=== PATIENT | male | born 1955 | race Caucasian/White ===

== ENCOUNTER 2019-01-16 19:49 | Emergency (ER) | payer OTHER ==
[~2019-01-16] VITALS: Ht 175.3 cm; Wt 59.0 kg
[~2019-01-16 19:49] MED LIST: ATEN100T; ENAL5TAB; IMIP50TA2; NOR10T; RABE20TA5; TRAZ100T2
[2019-01-16 20:22] VITALS: BP 184/89
[2019-01-16] MEDS ORDERED: cloNIDine HCL 0.1 MG TAB PO ONE (21:15)
== END 2019-01-16 21:59 | disposition home or self-care (01) ==
LOC: ER 19:49
DX: I16.0 Hypertensive urgency (principal); F17.210 Nicotine dependence, cigarettes, uncomplicated; Z88.0 Allergy status to penicillin; Z79.899 Other long term (current) drug therapy